=== PATIENT | female | born 1960 | race Two or more races ===

== ENCOUNTER 2021-03-22 09:51 | Inpatient (IN) | payer OTHER ==
[~2021-03-22] VITALS: Ht 172.7 cm; Wt 96.7 kg
[2021-03-22] MEDS: NOREPINEPHRINE 8 MG/250ML KIT 250 ML IV SCH (10:30)
[2021-03-22] MEDS ORDERED: MORPHINE SULFATE 4 MG/ML SYR/VIAL IV ONE (12:45)
[2021-03-22] MEDS ORDERED: PROMETHAZINE HCL 25 MG/ML 1ML IV ONE (12:45)
[2021-03-22 12:55] LABS: Basophils # (auto) 0 10 ^3/uL (0-0.2); Basophils % (auto) 0.1 % (0.0-2.0); Eosinophils # (auto) 0 10 ^3/uL (0-0.8); Eosinophils % (auto) 0.2 % (0.0-7.0); Hematocrit 38.3 % (36.0-46.0); Hemoglobin 12.1 g/dL (12.2-16.2); Mean Corpuscular Hemoglobin 26.7 pg (28.0-32.0); Mean Corpuscular Hgb Conc. 31.5 g/dL (32.0-36.0); Mean Corpuscular Volume 84.6 fL (80.0-100.0); Monocytes # (auto) 0.2 10 ^3/uL (0-1.3); Monocytes % (auto) 2.2 % (0.0-12.0); Neutrophils # (auto) 7.4 10 ^3/uL (1.6-8.6); Neutrophils % (auto) 85.5 % (37.0-80.0); Red Blood Cells 4.53 10^6/uL (4.0-5.20); Red Cell Distribution Width 15.7 % (11.8-14.3); White Blood Cell 8.7 10^3/uL (4.4-10.8)
[2021-03-22 13:13] LABS: Albumin 2.3 g/dL (3.4-5.0); Calcium 8.5 mg/dL (8.5-10.1); Potassium 4.6 mmol/L (3.5-5.1)
[2021-03-22 13:16] LABS: BUN/Creatinine Ratio 4.6; Bilirubin, Total 0.6 mg/dL (0.2-1.0); Lactic Acid w/Reflex 4.7 mmol/L (0.4-2.0); Total Protein 6.6 g/dL (6.4-8.2)
[2021-03-22] MEDS ORDERED: SODIUM CHLORIDE 0.9% 250 ML IV ONE (17:15)
[2021-03-22] MEDS ORDERED: MORPHINE SULFATE INJECTION 2 MG/ML SYRG IV PRN (19:00)
[2021-03-22] MEDS ORDERED: ALBUMIN 5% 250 ML IV ONE (19:00)
[2021-03-22] MEDS ORDERED: SODIUM CHLORIDE 0.9% 1,000 ML IV ONE (19:00)
[2021-03-22] MEDS ORDERED: ALBUMIN 25% 50 ML IV ONE (19:00)
[2021-03-22] MEDS ORDERED: NITROGLYCERIN 0.4 MG SL TAB SL PRN (19:00)
[2021-03-22] MEDS ORDERED: cefTRIAXone 1GM/50ML D5W 50 ML IV ONE (19:13)
[2021-03-22] MEDS ORDERED: VANCOMYCIN PER PHARMACY 0 MG IV SCH (19:15)
[2021-03-22] MEDS ORDERED: VANCOMYCIN 1GM/250ML 250 ML IV ONE (19:15)
[2021-03-22] MEDS: HEPARIN SODIUM (PORCINE) 5000 UNITS/ML 1ML VIAL SC SCH (22:00)
[2021-03-22] MEDS: MIDODRINE HCL 10 MG TAB PO SCH (22:27)
[2021-03-22 23:43] LABS: Lactic Acid w/Reflex 4.2 mmol/L (0.4-2.0)
[2021-03-23] VITALS (24 sets, daily range): BP systolic 80–121; BP diastolic 38–77
[2021-03-23 05:20] LABS: Basophils # (auto) 0 10 ^3/uL (0-0.2); Basophils % (auto) 0.1 % (0.0-2.0); Eosinophils # (auto) 0 10 ^3/uL (0-0.8); Eosinophils % (auto) 0.1 % (0.0-7.0); Hematocrit 32.6 % (36.0-46.0); Hemoglobin 10.5 g/dL (12.2-16.2); Lymphocytes # (auto) 0.7 10 ^3/uL (0.4-5.4); Lymphocytes % (auto) 5.5 % (10.0-50.0); Mean Corpuscular Hgb Conc. 32.2 g/dL (32.0-36.0); Mean Corpuscular Volume 83.8 fL (80.0-100.0); Monocytes # (auto) 0.4 10 ^3/uL (0-1.3); Monocytes % (auto) 2.8 % (0.0-12.0); Neutrophils # (auto) 11.7 10 ^3/uL (1.6-8.6); Neutrophils % (auto) 91.5 % (37.0-80.0); Nucleated Red Blood Cells % 0.1 %; Red Blood Cells 3.88 10^6/uL (4.0-5.20); Red Cell Distribution Width 15.1 % (11.8-14.3); White Blood Cell 12.8 10^3/uL (4.4-10.8)
[2021-03-23] MEDS ORDERED: ONDA-155 PO (05:38)
[2021-03-23] MEDS ORDERED: LABE300T3 PO (05:38)
[2021-03-23] MEDS ORDERED: LISI20TA28 PO (05:38)
[2021-03-23 05:39] LABS: BUN/Creatinine Ratio 5.3; Calcium 7.8 mg/dL (8.5-10.1); Potassium 4.7 mmol/L (3.5-5.1)
[2021-03-23] MEDS ORDERED: POM PO (05:58)
[2021-03-23] MEDS: MIDODRINE HCL 10 MG TAB PO SCH ×2 (06:36→10:18)
[2021-03-23] MEDS ORDERED: HEPARIN SODIUM (PORCINE) 5000 UNITS/ML 1ML VIAL ONE (10:02)
[2021-03-23] MEDS ORDERED: ONDANSETRON HCL 4 MG/2 ML VIAL IV PRN ×2 (12:00→12:15)
[2021-03-23 12:13] LABS: Lactic Acid w/Reflex 2.8 mmol/L (0.4-2.0)
[2021-03-23] MEDS ORDERED: DOPamine 1600MCG/ML D5W 250 ML IV SCH ×2 (12:15→13:30)
[2021-03-23] MEDS ORDERED: POLYETHYLENE GLYCOL 17 GM PWDR PO ONE (14:30)
[2021-03-23] MEDS ORDERED: VANCOMYCIN 750mg/250ml 250 ML IV ONE (15:00)
[2021-03-23] MEDS: ALBUMIN 25% 100 ML IV SCH ×2 (15:26→19:31)
[2021-03-23] MEDS: DOPamine 1600MCG/ML D5W 250 ML IV SCH (16:17)
[2021-03-23 17:24] LABS: Urine Bacteria NONE SEEN /hpf (None Seen); Urine Blood 2+ /uL (Negative); Urine Specific Gravity 1.012 (1.001-1.035); Urine WBC 260 /hpf (0 - 5)
[2021-03-23] MEDS ORDERED: ALBUMIN 25% 100 ML IV ONE (18:13)
[2021-03-23] MEDS ORDERED: NOREPINEPHRINE 8 MG/250ML KIT 250 ML IV ONE (18:22)
[2021-03-23] MEDS: NOREPINEPHRINE 8 MG/250ML KIT 250 ML IV SCH (20:00)
[2021-03-23] MEDS: SODIUM CHLORIDE 0.9% 500 ML IV SCH (20:00)
[2021-03-23] MEDS: PERITONEAL DIALYSIS 1.5% SOLN 2,000 ML IP SCH (21:45)
[2021-03-23] MEDS: HEPARIN SODIUM (PORCINE) 5000 UNITS/ML 1ML VIAL SC SCH (22:00)
[2021-03-24] VITALS (90 sets, daily range): BP systolic 79–166; BP diastolic 32–100
[2021-03-24] MEDS: NOREPINEPHRINE 8 MG/250ML KIT 250 ML IV SCH ×2 (02:48→10:27)
[2021-03-24] MEDS: PERITONEAL DIALYSIS 1.5% SOLN 2,000 ML IP SCH ×3 (03:30→12:00)
[2021-03-24] MEDS: ALBUMIN 25% 100 ML IV SCH (03:58)
[2021-03-24 05:22] LABS: Hemoglobin 8.3 g/dL (12.2-16.2); Mean Corpuscular Hemoglobin 27.2 pg (28.0-32.0); Red Blood Cells 3.06 10^6/uL (4.0-5.20)
[2021-03-24 05:24] LABS: Albumin 2.8 g/dL (3.4-5.0); Calcium 7.2 mg/dL (8.5-10.1); Potassium 5.1 mmol/L (3.5-5.1)
[2021-03-24 05:27] LABS: BUN/Creatinine Ratio 6.5; Bilirubin, Total 0.4 mg/dL (0.2-1.0); Total Protein 5.1 g/dL (6.4-8.2)
[2021-03-24 05:36] LABS: Mean Corpuscular Hgb Conc. 33.4 g/dL (32.0-36.0); Mean Corpuscular Volume 81.6 fL (80.0-100.0); Red Cell Distribution Width 15.2 % (11.8-14.3); White Blood Cell 14.8 10^3/uL (4.4-10.8)
[2021-03-24 05:47] LABS: Basophils % (manual) 0 (0.0-2.0); Blast Cells 0; Eosinophils % (manual) 0 (0-7); Metamyelocytes % 0; Myelocytes % 0; Promyelocytes % 0; Reactive Lymphocytes 0
[2021-03-24 07:31] LABS: Band Neutrophils % (manual) 1; Lymphocytes % (manual) 7 (10.0-50.0); Monocytes % (manual) 4 (0-12)
[2021-03-24] MEDS: SODIUM CHLORIDE 0.9% 500 ML IV SCH ×5 (08:30→20:01)
[2021-03-24] MEDS: HEPARIN SODIUM (PORCINE) 5000 UNITS/ML 1ML VIAL SC SCH ×3 (10:00→22:35)
[2021-03-24] MEDS: POLYETHYLENE GLYCOL 17 GM PWDR PO SCH (10:00)
[2021-03-24] MEDS: DOPamine 1600MCG/ML D5W 250 ML IV SCH (13:45)
[2021-03-24] MEDS ORDERED: CEFAZOLIN IP SCH (14:00)
[2021-03-24] MEDS ORDERED: PERITONEAL DIALYSIS 1.5% IP SCH (14:00)
[2021-03-24] MEDS: CEFAZOLIN IP SCH ×4 (14:00→22:36)
[2021-03-24] MEDS: PERITONEAL DIALYSIS 1.5% IP SCH ×4 (14:00→22:36)
[2021-03-24] MEDS: PIPERACILLIN-TAZOB 2.25GM 50 ML IV SCH ×2 (14:57→22:34)
[2021-03-25] VITALS (76 sets, daily range): BP systolic 42–143; BP diastolic 20–97
[2021-03-25] MEDS: SODIUM CHLORIDE 0.9% 500 ML IV SCH ×4 (03:43→21:51)
[2021-03-25] MEDS: PERITONEAL DIALYSIS 1.5% IP SCH ×3 (05:32→14:45)
[2021-03-25] MEDS: CEFAZOLIN IP SCH ×3 (05:32→14:45)
[2021-03-25] MEDS: PIPERACILLIN-TAZOB 2.25GM 50 ML IV SCH ×2 (05:32→14:23)
[2021-03-25] MEDS ORDERED: dilTIAZem 25 MG/5 ML VIAL IV ONE (06:22)
[2021-03-25] MEDS ORDERED: AMIODARONE 450mg/250ml AE 250 ML IV SCH (07:45)
[2021-03-25] MEDS ORDERED: AMIODARONE HCL 150 MG in D5W 5% 100 ML IV ONE (07:45)
[2021-03-25] MEDS: POLYETHYLENE GLYCOL 17 GM PWDR PO SCH (10:00)
[2021-03-25] MEDS: NOREPINEPHRINE 8 MG/250ML KIT 250 ML IV SCH ×2 (10:30→14:45)
[2021-03-25] MEDS: ALBUMIN 25% 100 ML IV SCH ×2 (11:47→21:50)
[2021-03-25] MEDS: HEPARIN SODIUM (PORCINE) 5000 UNITS/ML 1ML VIAL SC SCH ×2 (11:48→21:49)
[2021-03-25] MEDS: MIDODRINE HCL 10 MG TAB PO SCH ×2 (12:00→17:47)
[2021-03-25] MEDS: AMIODARONE 450mg/250ml AE 250 ML IV SCH (14:00)
[2021-03-25] MEDS ORDERED: MEROPENEM 500MG IVPB 50 ML IV ONE (16:15)
[2021-03-25] MEDS ORDERED: VANCOMYCIN 1GM/250ML 250 ML IV ONE (17:00)
[2021-03-25] MEDS: PERITONEAL DIALYSIS 1.5% SOLN 2,000 ML IP SCH ×2 (19:55→21:52)
[2021-03-26] VITALS (21 sets, daily range): BP systolic 86–119; BP diastolic 38–76
[2021-03-26] MEDS: PERITONEAL DIALYSIS 1.5% SOLN 2,000 ML IP SCH ×6 (01:56→18:00)
[2021-03-26] MEDS: HEPARIN SODIUM IP SCH ×3 (03:00→22:00)
[2021-03-26] MEDS: PERITONEAL DIALYSIS 1.5% IP SCH ×3 (03:00→22:00)
[2021-03-26 04:50] LABS: Basophils # (auto) 0 10 ^3/uL (0-0.2); Basophils % (auto) 0.1 % (0.0-2.0); Eosinophils # (auto) 0.2 10 ^3/uL (0-0.8)
[2021-03-26 04:52] LABS: Eosinophils % (auto) 2.6 % (0.0-7.0); Hematocrit 23.6 % (36.0-46.0); Lymphocytes % (auto) 10.9 % (10.0-50.0); Mean Corpuscular Hemoglobin 27.6 pg (28.0-32.0); Mean Corpuscular Hgb Conc. 33.9 g/dL (32.0-36.0); Mean Corpuscular Volume 81.3 fL (80.0-100.0); Monocytes % (auto) 10.6 % (0.0-12.0); Neutrophils # (auto) 6.8 10 ^3/uL (1.6-8.6); Neutrophils % (auto) 75.8 % (37.0-80.0); Red Blood Cells 2.91 10^6/uL (4.0-5.20); Red Cell Distribution Width 14.9 % (11.8-14.3); White Blood Cell 8.9 10^3/uL (4.4-10.8)
[2021-03-26 05:35] LABS: Albumin 2.4 g/dL (3.4-5.0); BUN/Creatinine Ratio 7.9; Calcium 7.6 mg/dL (8.5-10.1)
[2021-03-26 05:37] LABS: Bilirubin, Total 0.5 mg/dL (0.2-1.0); Total Protein 4.8 g/dL (6.4-8.2)
[2021-03-26] MEDS: AMIODARONE 450mg/250ml AE 250 ML IV SCH (06:15)
[2021-03-26] MEDS: MIDODRINE HCL 10 MG TAB PO SCH ×3 (06:16→18:00)
[2021-03-26] MEDS: SODIUM CHLORIDE 0.9% 500 ML IV SCH ×3 (07:10→22:48)
[2021-03-26] MEDS ORDERED: MEROPENEM 500MG IVPB 50 ML IV SCH (10:00)
[2021-03-26] MEDS: POLYETHYLENE GLYCOL 17 GM PWDR PO SCH (10:00)
[2021-03-26] MEDS: AMIODARONE HCL 200 MG TAB PO SCH ×2 (10:26→22:00)
[2021-03-26] MEDS: HEPARIN SODIUM (PORCINE) 5000 UNITS/ML 1ML VIAL SC SCH ×2 (10:26→22:00)
[2021-03-26] MEDS: ALBUMIN 25% 100 ML IV SCH ×2 (11:30→22:44)
[2021-03-26] MEDS: NOREPINEPHRINE 8 MG/250ML KIT 250 ML IV SCH (11:30)
[2021-03-26] MEDS: MEROPENEM 500MG IVPB 50 ML IV SCH (22:00)
[2021-03-27] VITALS (15 sets, daily range): BP systolic 91–134; BP diastolic 60–81
[2021-03-27] MEDS: PERITONEAL DIALYSIS 1.5% SOLN 2,000 ML IP SCH ×5 (02:00→18:09)
[2021-03-27] MEDS ORDERED: HEPARIN 1,000 UNITS/ml 1ML VIAL ONE (05:43)
[2021-03-27] MEDS: MIDODRINE HCL 10 MG TAB PO SCH ×3 (06:00→18:09)
[2021-03-27 07:45] LABS: Hemoglobin 7.8 g/dL (12.2-16.2)
[2021-03-27 07:46] LABS: Hematocrit 23.1 % (36.0-46.0); Mean Corpuscular Hemoglobin 27.6 pg (28.0-32.0); Mean Corpuscular Hgb Conc. 33.9 g/dL (32.0-36.0); Mean Corpuscular Volume 81.4 fL (80.0-100.0); Red Blood Cells 2.84 10^6/uL (4.0-5.20); White Blood Cell 7.8 10^3/uL (4.4-10.8)
[2021-03-27 07:47] LABS: Basophils % (manual) 0 (0.0-2.0); Blast Cells 0; Metamyelocytes % 0; Myelocytes % 0; Promyelocytes % 0; Reactive Lymphocytes 0
[2021-03-27 08:00] LABS: Albumin 2.6 g/dL (3.4-5.0); Calcium 7.3 mg/dL (8.5-10.1); Potassium 3.8 mmol/L (3.5-5.1)
[2021-03-27 08:05] LABS: BUN/Creatinine Ratio 7.7; Bilirubin, Total 0.5 mg/dL (0.2-1.0); Total Protein 4.9 g/dL (6.4-8.2)
[2021-03-27 08:25] LABS: Band Neutrophils % (manual) 4; Eosinophils % (manual) 1 (0-7); Lymphocytes % (manual) 22 (10.0-50.0); Monocytes % (manual) 8 (0-12)
[2021-03-27] MEDS: SODIUM CHLORIDE 0.9% 500 ML IV SCH ×3 (09:50→16:35)
[2021-03-27] MEDS: POLYETHYLENE GLYCOL 17 GM PWDR PO SCH (10:00)
[2021-03-27] MEDS: MEROPENEM 500MG IVPB 50 ML IV SCH (10:27)
[2021-03-27] MEDS: AMIODARONE HCL 200 MG TAB PO SCH (10:27)
[2021-03-27] MEDS: HEPARIN SODIUM (PORCINE) 5000 UNITS/ML 1ML VIAL SC SCH (10:28)
[2021-03-27 10:50] LABS: INR 1.25 (0.9-1.15); Partial Thromboplastin Time 32.2 sec (23.6-33.0)
[2021-03-27] MEDS: ALBUMIN 25% 100 ML IV SCH (11:00)
[2021-03-27] MEDS: NOREPINEPHRINE 8 MG/250ML KIT 250 ML IV SCH (11:30)
[2021-03-27 13:18] LABS: Lactic Acid w/Reflex 2.8 mmol/L (0.4-2.0)
[2021-03-27] MEDS ORDERED: MID10T PO (16:28)
[2021-03-27] MEDS ORDERED: WARFARIN SODIUM 5 MG TAB PO ONE (17:00)
[2021-03-28] MEDS: PERITONEAL DIALYSIS 1.5% SOLN 2,000 ML IP SCH ×4 (00:25→14:53)
[2021-03-28] MEDS: AMIODARONE HCL 200 MG TAB PO SCH ×2 (00:25→11:06)
[2021-03-28] MEDS: HEPARIN SODIUM (PORCINE) 5000 UNITS/ML 1ML VIAL SC SCH ×2 (00:26→11:07)
[2021-03-28] MEDS: ALBUMIN 25% 100 ML IV SCH (00:27)
[2021-03-28] MEDS: MEROPENEM 500MG IVPB 50 ML IV SCH ×2 (00:28→11:05)
[2021-03-28 05:00] VITALS: BP 113/68
[2021-03-28] MEDS: SODIUM CHLORIDE 0.9% 500 ML IV SCH ×3 (05:50→13:43)
[2021-03-28] MEDS: MIDODRINE HCL 10 MG TAB PO SCH ×2 (06:40→13:43)
[2021-03-28 06:46] LABS: INR 2.01 (0.9-1.15)
[2021-03-28 06:47] LABS: BUN/Creatinine Ratio 7.8; Calcium 7.2 mg/dL (8.5-10.1); Potassium 3.5 mmol/L (3.5-5.1)
[2021-03-28 06:54] LABS: Hematocrit 26.2 % (36.0-46.0); Mean Corpuscular Hemoglobin 27.8 pg (28.0-32.0); Mean Corpuscular Hgb Conc. 34.2 g/dL (32.0-36.0); Mean Corpuscular Volume 81.2 fL (80.0-100.0); Red Blood Cells 3.23 10^6/uL (4.0-5.20); Red Cell Distribution Width 14.8 % (11.8-14.3); White Blood Cell 8.1 10^3/uL (4.4-10.8)
[2021-03-28 07:16] LABS: Basophils % (manual) 0 (0.0-2.0); Blast Cells 0; Promyelocytes % 0; Reactive Lymphocytes 0
[2021-03-28 09:00] VITALS: BP 127/71
[2021-03-28 09:35] LABS: Band Neutrophils % (manual) 6; Eosinophils % (manual) 2 (0-7); Lymphocytes % (manual) 15 (10.0-50.0); Metamyelocytes % 1; Monocytes % (manual) 9 (0-12); Myelocytes % 1
[2021-03-28] MEDS: POLYETHYLENE GLYCOL 17 GM PWDR PO SCH (10:00)
[2021-03-28] MEDS ORDERED: VANCOMYCIN 1GM/250ML 250 ML IV ONE (11:00)
[2021-03-28] MEDS ORDERED: WARFARIN SODIUM 2 MG TAB PO ONE (12:00)
[2021-03-28 13:00] VITALS: BP 115/71
== END 2021-03-28 15:29 | disposition home health service (06) | DRG 371 ==
LOC: ER 09:51 → EDBD 09:51 → TELE 18:55 → TELE-CENTR 23:14 → OBSVTOIN 03-23 12:23 → ICU WEST 03-23 18:28 → TELE-CENTR 03-27 16:25
PROVIDERS: ADMIT Internal Medicine; ATTEND Internal Medicine
PROC: 5A09357 Assistance with Respiratory Ventilation, Less than 24 Consecutive Hours, Continuous Positive Airway Pressure (ICD-10-PCS; principal; 2021-03-23)
PROC: 3E1M39Z Irrigation of Peritoneal Cavity using Dialysate, Percutaneous Approach (ICD-10-PCS; 2021-03-23)
PROC: 3E1M39Z Irrigation of Peritoneal Cavity using Dialysate, Percutaneous Approach (ICD-10-PCS; 2021-03-25)
DX: K65.9 Peritonitis, unspecified (principal); N18.6 End stage renal disease; J96.01 Acute respiratory failure with hypoxia; I12.0 Hypertensive chronic kidney disease with stage 5 chronic kidney disease or end stage renal disease; R65.10 Systemic inflammatory response syndrome (SIRS) of non-infectious origin without acute organ dysfunction; T86.12 Kidney transplant failure; Q61.3 Polycystic kidney, unspecified; D63.1 Anemia in chronic kidney disease; E66.9 Obesity, unspecified; E88.09 Other disorders of plasma-protein metabolism, not elsewhere classified; E11.22 Type 2 diabetes mellitus with diabetic chronic kidney disease; E86.0 Dehydration; Z20.822 Contact with and (suspected) exposure to COVID-19; I48.91 Unspecified atrial fibrillation; Y83.0 Surgical operation with transplant of whole organ as the cause of abnormal reaction of the patient, or of later complication, without mention of misadventure at the time of the procedure; Y92.89 Other specified places as the place of occurrence of the external cause; Z68.32 Body mass index [BMI] 32.0-32.9, adult; Z82.49 Family history of ischemic heart disease and other diseases of the circulatory system; Z99.2 Dependence on renal dialysis; Z85.828 Personal history of other malignant neoplasm of skin; Z98.84 Bariatric surgery status
CPT/HCPCS: 36415; 36600; 71045; 74176; 80048; 80053; 80202; 81001; 82805; 83605; 83690; 83880; 84484; 85007; 85025; 85027; 85610; 85730; 87040; 87205; 87426; 89051; 93005; 93306; 96361; 96365; 96375; 99291; G0378; J0690; J0696; J1642; J2185; J2405; J2543; J7060; P9047